=== PATIENT | female | born 1985 | race Caucasian/White ===

== ENCOUNTER 2016-12-20 03:02 | Emergency (ER) | payer OTHER | END 2016-12-20 03:09 | disposition home or self-care (01) | LOC: ER 03:02 | DX: M54.5 Low back pain (principal); F17.200 Nicotine dependence, unspecified, uncomplicated; Z88.5 Allergy status to narcotic agent; Z88.1 Allergy status to other antibiotic agents | CPT/HCPCS: 99283 ==